=== PATIENT | female | born 1960 ===

== ENCOUNTER 2016-03-13 10:40 | Outpatient (CLI) | payer OTHER ==
--- NOTE | 2016-03-13 13:11 | Cat Scan Report ---
CT NECK WITH CONTRAST: 03/13/16 10:40:00 CLINICAL: Neck mass. TECHNIQUE: Volumetric acquisition and 1.25 mm scan reconstructionsafter the uneventful intravenous injection of 100-cc Omnipaque 350. Consent was obtained prior to the administration of the IV contrast. FINDINGS: Normal mucosal structures of the nasopharynx, oropharynx, hypopharynx and larynx. No mass or lymphadenopathy of the neck. Normal salivary glands. The parapharyngeal spaces are normal. Normal thyroid. The vascular structures are normal. Mild degenerative changes in the spine The upper lung simpson are clear. IMPRESSION: Normal neck except for mild degenerative change in the spine
== END 2016-03-13 10:41 | disposition home or self-care (01) ==
LOC: SPVIMAG 10:40
PROVIDERS: ATTEND Emergency Medicine
DX: R22.1 Localized swelling, mass and lump, neck (principal)
CPT/HCPCS: 70491; Q9967